=== PATIENT | female | born 1990 | race Caucasian/White ===

== ENCOUNTER 2017-03-30 08:39 | Emergency (ER) | payer MEDICAID, OTHER ==
[~2017-03-30] VITALS: Ht 160 cm; Wt 91.0 kg
[~2017-03-30 08:39] MED LIST: ALBU6.7H INH; IBUP-232 PO
[2017-03-30 08:40] VITALS: BP 129/73; PULSE 86; RESP 20; TEMP 99.2; O2SAT 99
--- NOTE | 2017-03-30 09:02 | PD ---
HPI Chief Complaint: Pain: Acute or Chronic Time Seen by Provider: 08:57 Travel History International Travel<30 days: No Contact w/Intl Traveler<30days: No Traveled to known affect area: No History of Present Illness HPI 27-year-old female with history of no significant past medical issues, presents to the ER today with left ankle pain which she states has been going on for months. She states that it worsened today and she has noticed a bump recently on her ankle medially. She denies any known injuries. She denies any other issues. Its worse with walking. Modifying Factors: None Associated Signs & Symptoms: Left ankle pain Risk Factors: None PFSH Past Medical History Asthma: Yes Diminished Hearing: No Respiratory: Yes ?: Not LMP: 03/08/17 Menopausal: No : 3 Para: 1 Miscarriage: 0 : 1 Past Surgical History Section: Yes Gynecologic Surgery: Yes Social History Alcohol Use: Yes (OCC) Tobacco Use: Yes (OCC) Substance Use: Yes (MARIJUANA OCC) Allergies-Medications (Allergen,Severity, Reaction): Coded Allergies: No Known Allergies (Verified , 03/30/17) Reported Meds & Prescriptions Reported Meds & Active Scripts Active No Active Prescriptions or Reported Medications Review of Systems Except as stated in HPI: all other systems reviewed are Neg Physical Exam Narrative GENERAL: Well-nourished, well-developed young female patient in mild distress. SKIN: Focused skin assessment warm/dry. HEAD: Normocephalic. EYES: No scleral icterus. No injection or drainage. NECK: Supple, trachea midline. No JVD or lymphadenopathy. CARDIOVASCULAR: Regular rate and rhythm without murmurs, gallops, or rubs. RESPIRATORY: Breath sounds equal bilaterally. No accessory muscle use. GASTROINTESTINAL: Abdomen soft, non-tender, nondistended. EXTREMITIES: No clubbing, cyanosis, or edema. There is tenderness to palpation at the left ankle below the medial malleolus with palpable bony tenderness below the left medial malleolus. Mild edema in the area. Neurovascularly intact. MUSCULOSKELETAL: No cyanosis, or edema. BACK: Nontender without obvious deformity. No CVA tenderness. Data Data Last Documented VS Vital Signs Date Time Temp Pulse Resp B/P Pulse Ox O2 Delivery O2 Flow Rate FiO2 03/30/17 08:40 99.2 86 20 129/73 99 Room Air Orders Ankle, Complete ([id number]) (03/30/17 08:57) [facility] Medical Decision Making Medical Screen Exam Complete: Yes Emergency Medical Condition: Yes Medical Record Reviewed: Yes Interpretation(s) Last 24 hours Impressions Ankle X-Ray 03/30/17 0857 Signed Impressions: Service Date/Time: Thursday, March 30, 2017 09:05 - CONCLUSION: Unremarkable exam with no evidence of fracture or underlying bony abnormality. Kranthi Eden MD Differential Diagnosis Left ankle painssprain versus arthritis versus fractures versus bone spur Narrative Course X-ray does not show any signs of acute bony processes or fractures. I suspect that this is chronic irritation at the bony prominence that I palpate. It is more of a chronic issue rather than any acute process. My plan would be to give her symptomatic relief or pain. Nathan bandage as needed. Stay off it for the week. Return for any worsening in pain or new symptoms as needed. The plan has discussed with the patient and she states understanding. Diagnosis Primary Impression: Chronic pain of left ankle Referrals: [facility] Med/Other Pt SpecificInfo: Prescription(s) given Scripts Ibuprofen (Motrin Ib)200 Mg [id number] Mg PO QID PRN (PAIN SCALE 1 TO 10) #21 Prov:Matteo Cortes MD 03/30/17 Disposition: 01 DISCHARGE HOME Condition: Stable Matteo Cortes MD Mar 30, 2017 09:02
--- NOTE | 2017-03-30 09:26 | RADRPT ---
EXAM DATE/TIME: 03/30/2017 09:05 [facility] COMPARISON: ANKLE LEFT COMPLETE ([id number]), August 05, 2008, 21:07. INDICATIONS : Left ankle pain and swelling, denies injury MEDICAL HISTORY : None. SURGICAL HISTORY : None. ENCOUNTER: Initial ACUITY: 2 months PAIN SCORE: 4/10 LOCATION: Left Ankle FINDINGS: Three view exam was performed of the left ankle. The bony structures are in normal alignment. No ev idence of fracture, dislocation, or soft tissue swelling. The ankle mortise is intact. No radiopaqu e foreign bodies are seen. Bony mineralization is normal. CONCLUSION: Unremarkable exam with no evidence of fracture or underlying bony abnormality. Kranthi Eden MD on March 30, 2017 at 9:24 Board Certified Radiologist. This report was verified electronically.
[2017-03-30] MEDS ORDERED: IBUP-1129 PO (09:35)
== END 2017-03-30 10:31 | disposition home or self-care (01) ==
LOC: NEPC 08:39
DX: M25.572 Pain in left ankle and joints of left foot (principal); G89.29 Other chronic pain; Z72.0 Tobacco use
CPT/HCPCS: 73610; 99283